=== PATIENT | male | born 1950 | race Caucasian/White ===

== ENCOUNTER → 2018-01-30 | Outpatient (CLI) | payer BC ==
[~2018-01-30] MED LIST: ASPIRIN EC81 MG PO; COMBIGAN EYE DRO5 ML OD; FLOMAX0.4 MG PO; IOPAMIDOL 370 MG/ML 200 ML INFUS..BTL INJ ONE; LIPITOR20 MG PO; SODIUM CHLORIDE 0.9% 250ML 250 ML ONE
[2018-01-30 13:52] LABS: BLOOD UREA NITROGEN 13 mg/dL (7-26); BUN/CREATININE RATIO 13 (6-25); CREATININE, SERUM 1.04 mg/dL (0.72-1.25); EST GLOMERULAR FILTRATION RATE > 60 ML/MIN (60-)
--- NOTE | 2018-01-30 18:37 | Diagnostic Imaging Report ---
PROCEDURE: CT ABDOMEN \T\ PELVIS W/WO CONTRAST TECHNIQUE: The abdomen and pelvis were scanned utilizing a multidetector helical scanner from the diaphragm to the lesser trochanter before and after the IV administration of 150 cc of Isovue 370 and the oral administration of water (Gastroview/Readi-Cat 2). Coronal and sagittal multiplanar reformations were obtained. COMPARISON: None. INDICATIONS: HEMATURIA FINDINGS: LOWER THORAX: Scarring in the medial aspect of the right middle lobe (series 3, image 6) and lateral lingula (series 3, image 18). HEPATOBILIARY: No focal hepatic lesions. No biliary ductal dilatation. The gallbladder is unremarkable. SPLEEN: No splenomegaly. PANCREAS: No focal masses or ductal dilatation. ADRENALS: No adrenal nodules. KIDNEYS/URETERS: No renal or ureteral calculi, hydronephrosis, or obstruction. Bilateral subcentimeter hypodense lesions, which are too small to characterize and likely represent small cysts. No solid enhancing masses. Good contrast opacification of the renal collecting systems, renal pelves, and ureters. No filling defects, strictures, or extrinsic compressions. PELVIC ORGANS/BLADDER: Bladder shows no wall thickening or focal lesions. No bladder calculi. Prostatic enlargement. PERITONEUM / RETROPERITONEUM: No free air or fluid. LYMPH NODES: No lymphadenopathy. VESSELS: Mild atherosclerotic calcification of the distal abdominal aorta and proximal iliac vessels. GI TRACT: No bowel dilation or evidence of obstruction. Appendix is well identified and normal in caliber. Marked distal descending and sigmoid colon diverticulosis, without diverticulitis. 1.3 x 1.3 cm focal outpouching in the posterior superior stomach fundus (series 6, image 155). The BONES AND SOFT TISSUES: No aggressive lytic lesions. Degenerative disc changes in the lower thoracic and lumbosacral spine. Small fat containing umbilical hernia. Bilateral fat containing inguinal hernias. IMPRESSION: 1. no renal, ureteral, or bladder calculi. No hydronephrosis or obstruction. No filling defects, strictures, or extrinsic compressions in the opacified portions of the genitourinary tract. No bladder wall thickening or focal lesions. 2. Prostatic enlargement, likely due to BPH. 3. Marked distal descending and sigmoid colon diverticulosis, without diverticulitis. 4. 1.3 cm focal outpouching in the posterior superior stomach fundus likely represents a gastric fundal diverticulum. Dave Luong M.D. Dictated by: Dave Luong M.D. on 01/30/2018 at 18:41 Electronically approved by: Dave Luong M.D. on 01/30/2018 at 18:41
== END ==
LOC: CT 13:01
PROVIDERS: ATTEND Urology
DX: R31.21 Asymptomatic microscopic hematuria (principal)
CPT/HCPCS: 36415; 74178; 82565; 84520; J7050; Q9967